=== PATIENT | female | born 1975 | race Caucasian/White ===

== ENCOUNTER 2023-08-24 10:45 | Emergency (ER) | payer BC, OTHER ==
[2023-08-24 11:09] LABS: BASOPHILS % (AUTO) 0.2 %; EOSINOPHILS # (AUTO) 0.1 10^3/uL (0.0-0.7); EOSINOPHILS % (AUTO) 0.6 %; HCT - HEMATOCRIT 44.2 % (37.0-47.0); HGB - HEMOGLOBIN 14.7 g/dL (12.0-16.0); LYMPHOCYTES # (AUTO) 0.6 10^3/uL (1.5-3.5); LYMPHOCYTES % (AUTO) 6.9 %; MEAN CORPUSCULAR HGB CONC 33.3 g/dL (32.0-36.0); MEAN CORPUSCULAR VOLUME 96.1 fL (81.0-99.0); MEAN PLATELET VOLUME 10.6 fL (7.9-10.8); MONOCYTES # (AUTO) 0.4 10^3/uL (0.0-1.0); MONOCYTES % (AUTO) 4.5 %; NEUTROPHILS # (AUTO) 7.7 10^3/uL (1.5-6.6); NEUTROPHILS % (AUTO) 87.5 %; PLT - PLATELET COUNT 202 10^3/uL (130-450); RED CELL DISTRIBUTION WIDTH 12.1 % (12.0-15.0); WHITE BLOOD COUNT 8.9 x10^3/uL (4.8-10.8)
[2023-08-24 11:52] LABS: ALBUMIN 4.2 g/dL (3.2-5.5); ALBUMIN/GLOBULIN RATIO 1.7 (1.0-2.2); BILIRUBIN,TOTAL 0.8 mg/dL (0.2-1.0); CREATININE 0.7 mg/dL (0.6-1.3); TOTAL PROTEIN 6.7 g/dL (6.4-8.9)
[2023-08-24 14:16] LABS: BILIRUBIN,URINE NEGATIVE (NEGATIVE); GLUCOSE, URINE (UA) NEGATIVE (NEGATIVE); KETONES,URINE (UA) 15 mg/dL (NEGATIVE); LEUKOCYTE ESTERASE, URINE SMALL (NEGATIVE); NITRITE,URINE NEGATIVE (NEGATIVE); OCCULT BLOOD,URINE MODERATE (NEGATIVE); PH,URINE 6.5 PH (5.0-7.5); PROTEIN,URINE NEGATIVE (NEGATIVE); UROBILINOGEN,URINE 0.2 (NORMAL) E.U./dL (NORMAL)
[2023-08-24] MEDS ORDERED: ONDANSETRON ODT 4 MG TABLET TL STA (14:20)
[2023-08-24] MEDS ORDERED: MAG HYDROX/AL HYDROX/SIMETH 30 ML UDC PO STA (14:20)
[2023-08-24] MEDS ORDERED: ACETAMINOPHEN 325 MG TABLET PO STA (14:20)
--- NOTE | 2023-08-24 14:21 | ED Physician Documentation ---
PD HPI ABD PAIN - Stated complaint Stated Complaint: ABD/LT SIDE PX - Chief complaint Chief Complaint: Abd Pain - History obtained from History obtained from: Patient - Additional information Additional information: This is a very nice 48-year-old female who presented with periumbilical into left-sided abdominal pain accompanied by nausea, vomiting and diarrhea. Symptoms started last night. she has had pain is "stabbing" and comes in waves. It subsides in between. She has not taken any medication for this issue. She denies any fever, no chest pain or difficulty breathing, no dysuria urgency or frequency. She does state that she is on her menses right now but has never had issues like this with her menstrual period in the past. She states her child had some GI upset recently however this is a recurrent issue for the child andTherefore the patient did not feel like it was a source of potential infection. She states no new or unusual foods, She has been eating at home, no one else in the household sick except for her daughter who has recurrent GI issues. Patient has not traveled internationally, no new medication. She states she is actually feeling somewhat better now since waiting in the waiting area and feels like her symptoms may be subsiding. She was concerned however Because a family member had GI symptoms and had to go into 3 different times before he was diagnosed with a perforated appendicitis and she is concerned about an appendicitis. She talked to a nurse and the family who advised her to be seen. Review of Systems Constitutional: reports: Reviewed and negative Ears: reports: Reviewed and negative Nose: reports: Reviewed and negative Throat: reports: Reviewed and negative Cardiac: reports: Reviewed and negative Respiratory: reports: Reviewed and negative GI: reports: Abdominal Pain, Nausea, Vomiting, Diarrhea. denies: Abdominal Swelling, Constipation, Hematemesis : reports: Reviewed and negative Skin: reports: Reviewed and negative Musculoskeletal: reports: Reviewed and negative Neurologic: reports: Reviewed and negative Psychiatric: reports: Reviewed and negative Endocrine: reports: Reviewed and negative PD PAST MEDICAL HISTORY - Past Medical History Past Medical History: No - Present Medications Home Medications: Ambulatory Orders Medication Instructions Recorded Confirmed Ondansetron Odt [Zofran] 4 mg TL Q6H PRN #10 tablet 08/24/23 - Allergies Allergies/Adverse Reactions: Allergies Allergy/AdvReac Type Severity Reaction Status Date / Time acetaminophen [From Percocet] AdvReac Emesis Verified 08/24/23 10:54 oxycodone [From Percocet] AdvReac Emesis Verified 08/24/23 10:54 - Social History Does the pt smoke?: No Smoking Status: Never smoker PD ED PE NORMAL - Vitals Vital signs reviewed: Yes - General General: Alert and oriented X 3, No acute distress, Well developed/nourished - HEENT HEENT: Atraumatic, Moist mucous membranes - Neck Neck: Supple, no meningeal sign, No JVD - Cardiac Cardiac: RRR, No murmur - Respiratory Respiratory: No respiratory distress, Clear bilaterally - Abdomen Abdomen: Normal bowel sounds, Soft, Non distended, Other (Mild Mid upper abdomen to left upper abdomen tenderness without guarding. And tenderness occurred after palpation not while palpating. There is specifically no right lower quadrant or right upper quadrant tenderness) - Back Back: No CVA TTP, No spinal TTP - Derm Derm: Normal color, Warm and dry, No rash - Extremities Extremities: No deformity, No tenderness to palpate, Normal ROM s pain - Neuro Neuro: Alert and oriented X 3 Eye Opening: Spontaneous Motor: Obeys Commands Verbal: Oriented GCS Score: 15 Results - Vitals Vitals: Vital Signs - 24 hr 08/24/23 08/24/23 10:49 15:06 Temperature 36.3 C L 37.0 C Heart Rate 89 84 Respiratory 16 18 Rate Blood Pressure 136/80 H 145/94 H O2 Saturation 100 99 Oxygen O2 Source Room air - Labs Labs: Laboratory Tests 08/24/23 08/24/23 08/24/23 11:05 11:05 14:05 WBC 8.9 RBC 4.60 Hgb 14.7 Hct 44.2 MCV 96.1 MCH 32.0 H MCHC 33.3 RDW 12.1 Plt Count 202 MPV 10.6 Neut # (Auto) 7.7 H Lymph # (Auto) 0.6 L [place] # (Auto) 0.4 Eos # (Auto) 0.1 Baso # (Auto) 0.0 Absolute Nucleated RBC 0.00 Nucleated RBC % 0.0 Sodium 137 Potassium 4.0 Chloride 104 Carbon Dioxide 25 Anion Gap 8.0 BUN 19 Creatinine 0.7 Estimated GFR (MDRD) 90 Glucose 101 Calcium 9.0 Total Bilirubin 0.8 AST 16 ALT 13 Alkaline Phosphatase 43 Total Protein 6.7 Albumin 4.2 Globulin 2.5 Albumin/Globulin Ratio 1.7 Lipase 14 Urine Color YELLOW Urine Clarity CLEAR Urine pH 6.5 Ur Specific [place] <=1.005 Urine Protein NEGATIVE Urine Glucose (UA) NEGATIVE Urine Ketones 15 H Urine Occult Blood MODERATE H Urine Nitrite NEGATIVE Urine Bilirubin NEGATIVE Urine Urobilinogen 0.2 (NORMAL) Ur Leukocyte Esterase SMALL H Urine RBC 0-5 Urine WBC 0-3 Ur Squamous Epith Cells FEW Squamous Urine Bacteria Rare Ur Microscopic Review INDICATED Urine Culture Comments INDICATED Urine HCG, Qual NEGATIVE PD Medical Decision Making - ED course Complexity details: reviewed results, re-evaluated patient, considered differential, d/w patient, d/w family ED course: 48-year-old female presented with abdominal pain as described in HPI. The patient actually states the pain seems to be upset subsiding since she has been waiting here and she is feeling somewhat better at the time of my exam. Physical exam is generally reassuring, she does have some mild mid epigastric to left upper quadrant tenderness after I palpated those areas but specifically there is no right upper quadrant or right lower quadrant tenderness and no rigidity. I did obtain labs to evaluate for signs of infection or dehydration these are reassuring including CBC and CMP, urinalysis negative for infection the patient does have her menses at this time. I discussed with patient that given improvement in her symptoms and fairly reassuring exam and lab work, I think less likely to be appendicitis, and suspected gastroenteritis or possibly mild diverticulitis. I did offer a CT scan though given her improvement and reassuring labs and physical exam, I did not think it was necessary and patient was okay with holding off at this time. She did receive a dose of Zofran here and tolerated oral Tylenol, and oral fluids. I advised her to continue a very bland diet, clear liquids today and then advance slowly as tolerated tomorrow. She can take Zofran as needed, Tylenol as needed. I would expect a viral gastroenteritis to subside in the next day or 2 but patient was advised if at any point time she feels she is worsening, if she develops a fever, abdominal distention or increased pain to return to the ER. Departure - Departure Disposition: 01 Home, Self Care Clinical Impression: Gastroenteritis Condition: Good Instructions: ED Gastroenteritis Non Infec Prescriptions: Ondansetron Odt [Zofran] 4 mg TL Q6H PRN #10 tablet PRN Reason: Nausea / Vomiting Comments: Your symptoms are suggestive of a gastroenteritis or a mild diverticulitis. I think much less likely appendicitis as you have no pain on the right side or in the typical location for appendicitis. Your labs today are stable. We did discuss obtaining a CT scan however given the location of your symptoms and mild improvement, I do think reasonable to wait at this point. Recommended clear liquid diet today, Tylenol as needed for pain or cramping, you may also try Maalox or simethicone [id number] as well as the Zofran that I ordered. A gastroenteritis typically improves in 1 to 2 days so I would imagine did feel quite a bit better tomorrow, but if any point you develop a fever or worsening symptoms, please return and we can obtain a CT at that time. Forms: PCP List Discharge Date/Time: 08/24/23 15:06
[2023-08-24 14:28] LABS: CLARITY,URINE CLEAR (CLEAR); HCG UR QUAL NEGATIVE
[2023-08-24 14:37] LABS: BACTERIA,URINE Rare /HPF (None Seen); RBC,URINE 0-5 /HPF (0-5); SQUAMOUS EPITHELIAL CELL,UR FEW Squamous (<= Few); WBC,URINE 0-3 /HPF (0-5)
[2023-08-24 15:12] VITALS: BP 145/94; O2SAT 99
== END 2023-08-24 15:06 | disposition home or self-care (01) ==
LOC: ED 10:45
DX: K52.9 Noninfective gastroenteritis and colitis, unspecified (principal)
CPT/HCPCS: 36415; 80053; 81001; 81025; 83690; 85025; 87086; 99283; 99284; A9270; Q0162; 81003

== ENCOUNTER 2024-02-19 09:30 | Outpatient (CLI) | payer BC ==
--- NOTE | 2024-02-19 13:27 | XRAY Report ---
PROCEDURE: Foot 1-2V RT INDICATIONS: LACERATION WITH FOREIGN BODY, RIGHT FOOT TECHNIQUE: 2 views of the foot were acquired. COMPARISON: None. FINDINGS: Bones: No fractures or dislocations. No suspicious bony lesions. Soft tissues: No tibiotalar joint effusion. Achilles tendon appears normal. There is a density issac kari and slightly lateral to the first metatarsal neck/proximal head measuring approximately 0.6 x 0.2 cm. It may represent a small ossific density or a radiopaque foreign body. IMPRESSION: Question small ossific density or radiopaque foreign body dorsal and lateral to the distal neck/proxi mal head of the first metatarsal. Comment: CT foot may be helpful Reviewed by: Gianfranco Terrell MD on 02/19/2024 1:26 PM PDT Approved by: Gianfranco Terrell MD on 02/19/2024 1:26 PM PDT Station ID: [id number]
== END 2024-02-19 09:45 | disposition home or self-care (01) ==
LOC: DI.N 09:30
PROVIDERS: ATTEND Physician Assistant Medical
DX: S91.321A Laceration with foreign body, right foot, initial encounter (principal)